=== PATIENT | male | born 1995 | race Caucasian/White ===

== ENCOUNTER 2017-10-19 03:35 | Emergency (ER) | payer BC, SELFPAY ==
--- NOTE | 2017-10-19 04:43 | EDPHYS ---
Physician Documentation [facility] Name: Reinaldo Irene Age: 22 yrs Sex: Male : 1995 Arrival Date: 10/19/2017 Time: 03:39 Bed 20 Private MD: Mega Marques ED Physician Stephan Pichardo HPI: 10/19 04:48 This 22 yrs old Male presents to ER via Ambulatory with complaints of Chest gs Pain. 04:48 The patient or guardian reports chest pain that is located primarily in the anterior gs chest wall, right. The pain does not radiate. Associated signs and symptoms: Pertinent negatives: diaphoresis, nausea, shortness of breath, vomiting. The chest pain is described as sharp. Duration: The patient or guardian reports multiple episodes, that are intermittent, that wax and wane, with no pattern. Modifying factors: the symptoms are aggravated by cough, twisting torso. Severity of pain: At its worst the pain was moderate in the emergency department the pain has resolved. The patient has experienced similar episodes in the past, multiple times, pretty much daily for past 2 months, first episode a year ago. Historical: - Allergies: 03:51 No Known Allergies; lp1 - Home Meds: 03:51 None [Active]; lp1 - PMHx: 03:51 Asthma; lp1 - PSHx: 03:51 None; lp1 - Immunization history:: Adult Immunizations up to date. - Social history:: Smoking status: Patient/guardian denies using tobacco. - Ebola Screening: : No symptoms or risks identified at this time. ROS: 04:48 All other systems are negative. gs Exam: 04:48 Head/Face: Normocephalic, atraumatic. Eyes: Pupils equal round and reactive to light, gs extra-ocular motions intact. Lids and lashes normal. Conjunctiva and sclera are non-icteric and not injected. Cornea within normal limits. Periorbital areas with no swelling, redness, or edema. ENT: Nares patent. No nasal discharge, no septal abnormalities noted. Tympanic membranes are normal and external auditory canals are clear. Oropharynx with no redness, swelling, or masses, exudates, or evidence of obstruction, uvula midline. Mucous membranes moist. Neck: Trachea midline, no thyromegaly or masses palpated, and no cervical lymphadenopathy. Supple, full range of motion without nuchal rigidity, or vertebral point tenderness. No Meningismus. Chest/axilla: Normal chest wall appearance and motion. Nontender with no deformity. No lesions are appreciated. Respiratory: Lungs have equal breath sounds bilaterally, clear to auscultation and percussion. No rales, rhonchi or wheezes noted. No increased work of breathing, no retractions or nasal flaring. Abdomen/GI: Soft, non-tender, with normal bowel sounds. No distension or tympany. No guarding or rebound. No evidence of tenderness throughout. Back: No spinal tenderness. No costovertebral tenderness. Full range of motion. Skin: Warm, dry with normal turgor. Normal color with no rashes, no lesions, and no evidence of cellulitis. MS/ Extremity: Pulses equal, no cyanosis. Neurovascular intact. Full, normal range of motion. Neuro: Awake and alert, GCS 15, oriented to person, place, time, and situation. Cranial nerves II-XII grossly intact. Motor strength 5/5 in all extremities. Sensory grossly intact. Cerebellar exam normal. Normal gait. 04:48 Constitutional: The patient appears in no acute distress, alert, awake. 04:48 Cardiovascular: Rate: bradycardic, Rhythm: regular, Pulses: no pulse deficits are appreciated, Heart sounds: normal. 04:48 ECG was reviewed by the Attending Physician. Vital Signs: 03:50 BP 119 / 88; Pulse 63; Resp 14; Temp 98.6(O); Pulse Ox 100% on R/A; Weight 78.02 kg; lp1 Height 5 ft. 10 in. (177.80 cm); Pain 7/10; 04:45 BP 109 / 90; Pulse 56; Resp 16; Temp 98; Pulse Ox 99% on R/A; Pain 0/10; bs1 03:50 Body Mass Index 24.68 (78.02 kg, 177.80 cm) lp1 MDM: 04:03 Patient medically screened. 04:48 Differential diagnosis: abnormal EKG, chest wall pain, pneumothorax. Data reviewed: vital signs, nurses notes. 04:48 Counseling: I had a detailed discussion with the patient and/or guardian regarding: the need for outpatient follow up. Response to treatment: the patient's symptoms have resolved after treatment, and as a result, I will discharge patient. 10/19 03:56 Order name: XRAY Chest Pa And Lat (2 Views) 10/19 03:56 Order name: EKG; Complete Time: 03:56 10/19 03:56 Order name: EKG - Nurse/Tech; Complete Time: 04:11 EC:48 Rate is 54 beats/min. Rhythm is regular. MD interval is normal. QRS interval is gs prolonged. T waves are Normal. No ST changes noted. Clinical impression: Sinus bradycardia. Interpreted by me. Administered Medications: No medications were administered Disposition: 10/19/17 04:43 Discharged to Home. Impression: Chest pain, unspecified. - Condition is Stable. - Discharge Instructions: Nonspecific Chest Pain, [id number]. - Medication Reconciliation Form, Thank You Letter, Antibiotic Education, Prescription Opioid Use form. - Follow up: Mega Marques MD; When: 2 - 3 days; Reason: Re-evaluation by your physician. Signatures: Dispatcher [employer] EDAmy Hastings RN RN lp1 Stephan Pichardo MD MD Janet Prabhakar RN RN bs1 Corrections: (The following items were deleted from the chart) 04:51 04:43 10/19/2017 04:43 Discharged to Home. Impression: Chest pain, unspecified. bs1 Condition is Stable. Forms are Medication Reconciliation Form, Thank You Letter, Antibiotic Education, Prescription Opioid Use. Follow up: Mega Marques; When: 2 - 3 days; Reason: Re-evaluation by your physician.
--- NOTE | 2017-10-19 04:43 | ER ---
Nurse's Notes [facility] Name: Reinaldo Irene Age: 22 yrs Sex: Male : 1995 Arrival Date: 10/19/2017 Time: 03:39 Bed 20 Private MD: Mega Marques Diagnosis: Chest pain, unspecified Presentation: 10/19 03:47 Presenting complaint: Patient states: "I got chest pain that woke me up out of my lp1 sleep"; States episode of this before but never seen by doctor; States feeling short of breath, dizzy, sweating when pain started; pain has decreased some now. Transition of care: patient was not received from another setting of care. Onset of symptoms was October 19, 2017 at 02:30. Risk Assessment: Do you want to hurt yourself or someone else? Patient reports no desire to harm self or others. Initial Sepsis Screen: Does the patient meet any 2 criteria? No. Patient's initial sepsis screen is negative. Does the patient have a suspected source of infection? No. Patient's initial sepsis screen is negative. Care prior to arrival: None. 03:47 Method Of Arrival: Ambulatory lp1 03:47 Acuity: RONNIE 3 lp1 Historical: - Allergies: 03:51 No Known Allergies; lp1 - Home Meds: 03:51 None [Active]; lp1 - PMHx: 03:51 Asthma; lp1 - PSHx: 03:51 None; lp1 - Immunization history:: Adult Immunizations up to date. - Social history:: Smoking status: Patient/guardian denies using tobacco. - Ebola Screening: : No symptoms or risks identified at this time. Screenin:52 Abuse screen: Denies threats or abuse. Denies injuries from another. Nutritional bs1 screening: No deficits noted. Tuberculosis screening: No symptoms or risk factors identified. Fall Risk None identified. Assessment: 03:50 General: Appears in no apparent distress. comfortable, slender, well groomed, Behavior bs1 is calm, cooperative, appropriate for age. Pain: Complains of pain in right side of chest Pain does not radiate. Pain began gradually. Neuro: Level of Consciousness is awake, alert, obeys commands. Cardiovascular: Reports chest pain, Denies lightheadedness, nausea, shortness of breath, Heart tones S1 S2 present Capillary refill < 3 seconds Patient's skin is warm and dry. Respiratory: Airway is patent Trachea midline Respiratory effort is even, unlabored, Respiratory pattern is regular, symmetrical, Breath sounds are clear bilaterally. GI: No signs and/or symptoms were reported involving the gastrointestinal system. : No signs and/or symptoms were reported regarding the genitourinary system. EENT: No signs and/or symptoms were reported regarding the EENT system. Derm: Skin is intact. Musculoskeletal: Circulation, motion, and sensation intact. Capillary refill < 3 seconds, Range of motion: intact in all extremities. 04:42 Reassessment: Informed Dr Pichardo that patients heart rate dropped to 39, patient does bs1 not appear in any distress. Calm, cooperative. Even respirations. No further orders fro m Dr Pichardo. Patient to follow up with Dr Marques in 2-3 days. Vital Signs: 03:50 BP 119 / 88; Pulse 63; Resp 14; Temp 98.6(O); Pulse Ox 100% on R/A; Weight 78.02 kg; lp1 Height 5 ft. 10 in. (177.80 cm); Pain 7/10; 04:45 BP 109 / 90; Pulse 56; Resp 16; Temp 98; Pulse Ox 99% on R/A; Pain 0/10; bs1 03:50 Body Mass Index 24.68 (78.02 kg, 177.80 cm) lp1 ED Course: 03:39 Patient arrived in ED. es 03:40 Mega Marques MD is Private Physician. es 03:43 Janet Prabhakar, ABHILASH is Primary Nurse. bs1 03:45 Stephan Pichardo MD is Attending Physician. gs 03:50 Triage completed. lp1 03:50 Arm band placed on right wrist. lp1 03:50 Pulse ox on. NIBP on. bs1 03:51 EKG done, by ED staff, reviewed by Stephan Pichardo MD. Patient maintains SpO2 saturation lp1 greater than 95% on room air. 03:52 Patient has correct armband on for positive identification. Bed in low position. Call bs1 light in reach. Side rails up X 1. 04:08 Patient moved to radiology via wheelchair. kw 04:08 X-ray completed. Patient tolerated procedure well. kw 04:08 Patient moved back from radiology. kw 04:09 XRAY Chest Pa And Lat (2 Views) In Process Unspecified. EDMS 04:43 Mega Marques MD is Referral Physician. 04:50 No provider procedures requiring assistance completed. Patient did not have IV access bs1 during this emergency room visit. Administered Medications: No medications were administered Outcome: 04:43 Discharge ordered by MD. 04:51 Discharged to home ambulatory, with friend. bs1 04:51 Condition: stable 04:51 Discharge instructions given to patient, Instructed on discharge instructions, follow up and referral plans. Demonstrated understanding of instructions, follow-up care. 04:51 Patient left the ED. bs1 Signatures: Dispatcher [employer] EDBrianne Ford Kimberlee kw Pena, Laura, RN RN lp1 Stephan Pichardo MD MD gs Salazar, Brittany RN RN bs1
--- NOTE | 2017-10-19 06:41 | EKG ---
Test Date: 2017-10-19 Test Time: 03:44:59 An/Syq 13 Nav/C2 Operator: PADMINI MEASUREMENT RESULTS: Intervals: Rate: 54 ID: [id number] QRSD: 108 QT: 432 QTc: [address] [place]: P: -13 ID: [id number] QRS: 71 T: 12 INTERPRETIVE STATEMENTS: Sinus bradycardia Otherwise normal ECG Compared to ECG 05/01/2017 06:07:37 Sinus rhythm no longer present Electronically Signed On 10-19-17 06:41:05 CDT by Jose Hyman
--- NOTE | 2017-10-19 09:59 | RAD REPORT ---
EXAM DESCRIPTION: RAD - Chest Pa And Lat (2 Views) - 10/19/2017 4:12 am CLINICAL HISTORY: Chest pain, shortness of breath, asthma history COMPARISON: None. TECHNIQUE: PA and lateral views of the chest were obtained. FINDINGS: The lungs are clear. No abnormal peribronchial thickening. Trachea is midline. No air tra pping pattern seen. Heart size is normal and central vasculature is within normal limits. No pleural effusion or pneumothorax seen. No acute bony finding noted. No aortic abnormality. IMPRESSION: No acute cardiopulmonary process.
== END 2017-10-19 04:51 | disposition home or self-care (01) ==
LOC: ER 03:35
DX: R07.9 Chest pain, unspecified (principal)
CPT/HCPCS: 71046; 93005; 99284

== ENCOUNTER 2018-10-09 21:56 | Emergency (ER) | payer BC, SELFPAY ==
--- NOTE | 2018-10-09 23:08 | ER ---
Nurse's Notes [facility] Name: Reinaldo Irene Age: 23 yrs Sex: Male : 1995 Arrival Date: 10/09/2018 Time: 21:57 Bed 14 Private MD: Mega Marques Diagnosis: Nondisplaced fracture of distal phalanx of left little finger Presentation: 10/09 22:04 Presenting complaint: Patient states: Right pinky pain and swelling at tip for 1.5 la1 weeks. Transition of care: patient was not received from another setting of care. Onset of symptoms was October 09, 2018. Risk Assessment: Do you want to hurt yourself or someone else? Patient reports no desire to harm self or others. Risk Assessment: Do you want to hurt yourself or someone else?. Initial Sepsis Screen: Does the patient meet any 2 criteria? No. Patient's initial sepsis screen is negative. Does the patient have a suspected source of infection? No. Patient's initial sepsis screen is negative. Care prior to arrival: None. 22:04 Method Of Arrival: Ambulatory la1 22:04 Acuity: RONNIE 4 la1 Historical: - Allergies: 22:05 No Known Allergies; la1 - PMHx: 22:05 Asthma; la1 - Immunization history:: Adult Immunizations up to date. - Social history:: Smoking status: Patient/guardian denies using tobacco. - Ebola Screening: : No symptoms or risks identified at this time. Screenin:07 Abuse screen: Denies threats or abuse. Nutritional screening: No deficits noted. la1 Tuberculosis screening: No symptoms or risk factors identified. Fall Risk None identified. Assessment: 22:06 General: Appears in no apparent distress. Behavior is calm, cooperative. Pain: la1 Complains of pain in dorsal aspect of distal phalanx of right little finger and right little fingernail. Neuro: Level of Consciousness is awake, alert, obeys commands, Oriented to person, place, time, situation. Cardiovascular: Capillary refill < 3 seconds Patient's skin is warm and dry. Respiratory: Airway is patent Trachea midline Respiratory effort is even, unlabored, Respiratory pattern is regular, symmetrical. GI: No signs and/or symptoms were reported involving the gastrointestinal system. : No signs and/or symptoms were reported regarding the genitourinary system. Musculoskeletal: Circulation, motion, and sensation intact. Capillary refill < 3 seconds, is brisk, in bilateral fingers. Swelling present in dorsal aspect of distal phalanx of right little finger. Vital Signs: 22:05 BP 125 / 85; Pulse 74; Resp 16; Temp 97.9; Pulse Ox 98% ; la1 ED Course: 21:57 Patient arrived in ED. am2 21:57 Mega Marques MD is Private Physician. am2 22:01 Darron Rain RN is Primary Nurse. la1 22:05 Triage completed. la1 22:05 [facility] jr8 22:05 Zaki Fenton MD is Attending Physician. jr8 22:06 Arm band placed on left wrist. la1 22:07 Bed in low position. Call light in reach. la1 23:06 Zneon Rodriguez MD is Referral Physician. jr8 23:09 Hand Right 3 View XRAY In Process Unspecified. EDMS 23:11 Amari wrap to DIP of right ring finger, PIP of right ring finger, MCP of right ring jp3 finger, DIP of right little finger, PIP of right little finger and MCP of right little finger Aluminum finger splint applied to palmar aspect of distal phalanx of right little finger, palmar aspect of middle phalanx of right little finger and palmar aspect of proximal phalanx of right little finger. 23:21 No provider procedures requiring assistance completed. Patient did not have IV access la1 during this emergency room visit. Administered Medications: No medications were administered Outcome: 23:07 Discharge ordered by . [facility] 23:21 Discharged to home ambulatory. la1 23:21 Condition: stable 23:21 Discharge instructions given to patient, Instructed on discharge instructions, follow up and referral plans. medication usage, Demonstrated understanding of instructions, follow-up care, medications, Prescriptions given X 1. 23:22 Patient left the ED. la1 Signatures: Dispatcher [employer] EDMS Galdino Shell PA PA jr8 Darron Rain RN RN la1 Mary Cochran am2 Peña Ellis jp3
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
== END 2018-10-09 23:22 | disposition home or self-care (01) ==
LOC: ER 21:56
DX: S62.666A Nondisplaced fracture of distal phalanx of right little finger, initial encounter for closed fracture (principal); V49.40XA Driver injured in collision with unspecified motor vehicles in traffic accident, initial encounter
CPT/HCPCS: 99283

== ENCOUNTER 2019-01-21 22:11 | Emergency (ER) | payer SELFPAY ==
--- NOTE | 2019-01-21 23:37 | EDPHYS ---
Physician Documentation [facility] Name: Reinaldo Irene Age: 23 yrs Sex: Male : 1995 Arrival Date: 01/21/2019 Time: 22:13 Bed 7 Private MD: Mega Marques ED Physician Tiago Ferraro HPI: 01/21 22:44 This 23 yrs old Male presents to ER via Ambulatory with complaints of Hand snw Injury. 22:44 The patient or guardian reports a contusion, pain, swelling, tenderness. The complaints snw affect the right hand diffusely. Context: The problem was sustained at home, resulted from using own fist to strike, a solid object. Onset: The symptoms/episode began/occurred acutely, 2 day(s) ago, and became persistent. Severity of symptoms: At their worst the symptoms were. Historical: - Allergies: 22:24 No Known Allergies; lp1 - Home Meds: 22:24 None [Active]; lp1 - PMHx: 22:24 Asthma; lp1 - PSHx: 22:24 None; lp1 - Immunization history:: Adult Immunizations up to date. - Social history:: Smoking status: Patient/guardian denies using tobacco. - Ebola Screening: : No symptoms or risks identified at this time. ROS: 22:38 Constitutional: Negative for fever, chills, and weight loss, Eyes: Negative for injury, snw pain, redness, and discharge, ENT: Negative for injury, pain, and discharge, Neck: Negative for injury, pain, and swelling, Cardiovascular: Negative for chest pain, palpitations, and edema, Respiratory: Negative for shortness of breath, cough, wheezing, and pleuritic chest pain, Abdomen/GI: Negative for abdominal pain, nausea, vomiting, diarrhea, and constipation, Back: Negative for injury and pain, : Negative for injury, bleeding, discharge, and swelling, Skin: Negative for injury, rash, and discoloration, Neuro: Negative for headache, weakness, numbness, tingling, and seizure. 22:38 MS/extremity: Positive for injury or acute deformity, pain, swelling, of the dorsum of right hand. Exam: 22:37 Constitutional: This is a well developed, well nourished patient who is awake, alert, snw and in no acute distress. Head/Face: Normocephalic, atraumatic. Eyes: Pupils equal round and reactive to light, extra-ocular motions intact. Lids and lashes normal. Conjunctiva and sclera are non-icteric and not injected. Cornea within normal limits. Periorbital areas with no swelling, redness, or edema. ENT: Nares patent. No nasal discharge, no septal abnormalities noted. Tympanic membranes are normal and external auditory canals are clear. Oropharynx with no redness, swelling, or masses, exudates, or evidence of obstruction, uvula midline. Mucous membranes moist. Neck: Trachea midline, no thyromegaly or masses palpated, and no cervical lymphadenopathy. Supple, full range of motion without nuchal rigidity, or vertebral point tenderness. No Meningismus. Chest/axilla: Normal chest wall appearance and motion. Nontender with no deformity. No lesions are appreciated. Cardiovascular: Regular rate and rhythm with a normal S1 and S2. No gallops, murmurs, or rubs. Normal PMI, no JVD. No pulse deficits. Respiratory: Lungs have equal breath sounds bilaterally, clear to auscultation and percussion. No rales, rhonchi or wheezes noted. No increased work of breathing, no retractions or nasal flaring. Abdomen/GI: Soft, non-tender, with normal bowel sounds. No distension or tympany. No guarding or rebound. No evidence of tenderness throughout. Back: No spinal tenderness. No costovertebral tenderness. Full range of motion. Skin: Warm, dry with normal turgor. Normal color with no rashes, no lesions, and no evidence of cellulitis. Neuro: Awake and alert, GCS 15, oriented to person, place, time, and situation. Cranial nerves II-XII grossly intact. Motor strength 5/5 in all extremities. Sensory grossly intact. Cerebellar exam normal. Normal gait. Psych: Awake, alert, with orientation to person, place and time. Behavior, mood, and affect are within normal limits. 22:37 Musculoskeletal/extremity: Extremities: grossly normal except: noted in the dorsal aspect of proximal phalanx of right index finger, dorsal aspect of proximal phalanx of right middle finger, dorsal aspect of proximal phalanx of right ring finger and dorsum of right hand: ecchymosis, swelling, tenderness, ROM: no acute changes, Circulation is intact in all extremities. Sensation intact. Vital Signs: 22:23 BP 140 / 87; Pulse 72; Resp 16; Temp 99(TE); Pulse Ox 100% on R/A; Weight 79.38 kg; lp1 Height 5 ft. 11 in. (180.34 cm); Pain 8/10; 22:23 Body Mass Index 24.41 (79.38 kg, 180.34 cm) lp1 MDM: 22:28 Patient medically screened. snw 22:51 Data reviewed: vital signs, nurses notes. Data interpreted: Pulse oximetry: on room air snw is 100 %. Interpretation: normal. Counseling: I had a detailed discussion with the patient and/or guardian regarding: the historical points, exam findings, and any diagnostic results supporting the discharge/admit diagnosis, the presence of at least one elevated blood pressure reading (>120/80) during this emergency department visit, radiology results, the need for outpatient follow up, to return to the emergency department if symptoms worsen or persist or if there are any questions or concerns that arise at home. 01/21 22:36 Order name: Hand Right 3 View XRAY snw Administered Medications: No medications were administered Disposition: 01/22 04:22 Co-signature as Attending Physician, Tiago Ferraro MD I agree with the assessment and ugo plan of care. Disposition: 01/21/19 23:35 Discharged to Home. Impression: Contusion of right hand. - Condition is Stable. - Discharge Instructions: Elastic Bandage and RICE, Hand Contusion, Cryotherapy. - Prescriptions for Diclofenac Sodium 75 mg Oral Tablet Sustained Release - take 1 tablet by ORAL route 2 times per day; 30 tablet. - Medication Reconciliation Form, Thank You Letter, Antibiotic Education, Prescription Opioid Use form. - Follow up: Mega Marques MD; When: 1 week; Reason: Recheck today's complaints, Continuance of care, Re-evaluation by your physician. Follow up: Emergency Department; When: As needed; Reason: Worsening of condition. Signatures: Dispatcher [employer] Tiago Castillo MD MD cha Therrien, Shelly, ASSISTANT CLINICAL NURSE MANAGER-C ASSISTANT CLINICAL NURSE MANAGER-Csnw Amy Canales, RN RN lp1 Corrections: (The following items were deleted from the chart) 01/21 23:45 23:35 01/21/2019 23:35 Discharged to Home. Impression: Contusion of right hand. lp1 Condition is Stable. Forms are Medication Reconciliation Form, Thank You Letter, Antibiotic Education, Prescription Opioid Use. Follow up: Mega Marques; When: 1 week; Reason: Recheck today's complaints, Continuance of care, Re-evaluation by your physician. Follow up: Emergency Department; When: As needed; Reason: Worsening of condition. snw
--- NOTE | 2019-01-21 23:37 | ER ---
Nurse's Notes [facility] Name: Reinaldo Irene Age: 23 yrs Sex: Male : 1995 Arrival Date: 01/21/2019 Time: 22:13 Bed 7 Private MD: Mega Marques Diagnosis: Contusion of right hand Presentation: 01/21 22:22 Presenting complaint: Patient states: I fell and hurt my hand; Pain, swelling to right lp1 dorsal hand. Transition of care: patient was not received from another setting of care. Onset of symptoms was January 19, 2019. Risk Assessment: Do you want to hurt yourself or someone else? Patient reports no desire to harm self or others. Initial Sepsis Screen: Does the patient meet any 2 criteria? No. Patient's initial sepsis screen is negative. Does the patient have a suspected source of infection? No. Patient's initial sepsis screen is negative. Care prior to arrival: None. 22:22 Method Of Arrival: Ambulatory lp1 22:22 Acuity: RONNIE 4 lp1 Historical: - Allergies: 22:24 No Known Allergies; lp1 - Home Meds: 22:24 None [Active]; lp1 - PMHx: 22:24 Asthma; lp1 - PSHx: 22:24 None; lp1 - Immunization history:: Adult Immunizations up to date. - Social history:: Smoking status: Patient/guardian denies using tobacco. - Ebola Screening: : No symptoms or risks identified at this time. Screenin:25 Abuse screen: Denies threats or abuse. Denies injuries from another. Nutritional lp1 screening: No deficits noted. Tuberculosis screening: No symptoms or risk factors identified. Fall Risk None identified. Assessment: 22:24 General: Appears in no apparent distress. Behavior is calm, cooperative, appropriate lp1 for age. Pain: Complains of pain in dorsum of right hand Pain currently is 8 out of 10 on a pain scale. Quality of pain is described as aching. Neuro: Level of Consciousness is awake, alert, obeys commands. Cardiovascular: Patient's skin is warm and dry. Respiratory: Respiratory effort is even, unlabored. GI: No deficits noted. : No deficits noted. EENT: No deficits noted. Derm: Skin is pink, warm \T\ dry. Musculoskeletal: Swelling present in dorsum of right hand. Vital Signs: 22:23 BP 140 / 87; Pulse 72; Resp 16; Temp 99(TE); Pulse Ox 100% on R/A; Weight 79.38 kg; lp1 Height 5 ft. 11 in. (180.34 cm); Pain 8/10; 22:23 Body Mass Index 24.41 (79.38 kg, 180.34 cm) lp1 ED Course: 22:13 Patient arrived in ED. cl3 22:13 Mega Marques MD is Private Physician. cl3 22:16 Carie Urbina FNP-C is [facility]. snw 22:16 Tiago Ferraro MD is Attending Physician. snw 22:22 Amy Canales, RN is Primary Nurse. lp1 22:23 Triage completed. lp1 22:23 Arm band placed on left wrist. lp1 22:25 Patient has correct armband on for positive identification. lp1 22:25 No provider procedures requiring assistance completed. Patient did not have IV access lp1 during this emergency room visit. 23:12 Hand Right 3 View XRAY In Process Unspecified. EDMS 23:35 Mega Marques MD is Referral Physician. snw Administered Medications: No medications were administered Outcome: 23:35 Discharge ordered by . snw 23:45 Discharged to home ambulatory, with significant other. lp1 23:45 Condition: good 23:45 Discharge instructions given to patient, Instructed on discharge instructions, follow up and referral plans. medication usage, Demonstrated understanding of instructions, follow-up care, medications, Prescriptions given X 1. 23:45 Patient left the ED. lp1 Signatures: Dispatcher [employer] EDMS Carie Urbina FNP-C APPLIED MATHEMATICIAN-Csnw Amy Canales, RN RN lp1 Ally Pena cl3
[2019-01-21 23:54] VITALS: BP 140/87; TEMP 99; O2SAT 100
--- NOTE | 2019-01-22 12:13 | RAD REPORT ---
EXAM DESCRIPTION: RAD - Hand Right 3 View - 01/21/2019 11:15 pm CLINICAL HISTORY: Hand pain COMPARISON: September 2018 FINDINGS: Avulsion fracture involving the base of the fifth distal phalanx is again demonstrated. No acute fracture is seen. No dislocation
== END 2019-01-21 23:45 | disposition home or self-care (01) ==
LOC: ER 22:11
DX: S60.221A Contusion of right hand, initial encounter (principal); W18.30XA Fall on same level, unspecified, initial encounter; Y93.9 Activity, unspecified; Y92.9 Unspecified place or not applicable
CPT/HCPCS: 99283

== ENCOUNTER 2019-06-07 | Emergency (ER) | payer SELFPAY ==
--- NOTE | 2019-06-07 23:25 | ER ---
Nurse's Notes [facility] Name: Reinaldo Irene Age: 23 yrs Sex: Male : 1995 Arrival Date: 06/07/2019 Time: 22:14 Bed Waiting Private MD: Diagnosis: ED Course: 06/06 22:14 Patient arrived in ED. ag3 22:41 Zaki Fenton MD is Attending Physician. tw4 22:43 Patient's name was called from ER [employer]. No response. lp1 23:09 Patient's name was called from [facility] [employer] Unable to locate patient. Will disposition as lp1 left without being seen by a provider. Administered Medications: No medications were administered Outcome: :23 Eloped from waiting room, before seeing physician Time discovered patient gone: May lp1 2019 at 23:09 23:24 Patient left the ED. lp1 Signatures: Amy Canales RN RN lp1 Zaki Fenton MD MD 4 Lawanda Price 3
== END 2019-06-07 23:24 | disposition left against medical advice (07) ==
DX: Z53.21 Procedure and treatment not carried out due to patient leaving prior to being seen by health care provider (principal)